=== PATIENT | female | born 2000 | race Two or more races ===

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

== ENCOUNTER → 2019-09-23 | Outpatient (CLI) | payer BC, OTHER | LOC: LAB SHORT 16:58 → LAB 16:58 | DX: L08.9 Local infection of the skin and subcutaneous tissue, unspecified (principal) | CPT/HCPCS: 87070; 87077; 87147; 87186; 87205 ==